=== PATIENT | female | born 1930 | race African-American/Black ===

== ENCOUNTER 2018-05-24 19:57 | Emergency (ER) | payer MEDICARE ==
[2018-05-24] MEDS: DIPHTH,PERTUSS(ACELL),TET TOX 0.5 ML DISP.SYRIN. VAX IM (20:46)
== END 2018-05-24 21:10 | disposition home or self-care (01) ==
LOC: ER 19:57
DX: S61.031A Puncture wound without foreign body of right thumb without damage to nail, initial encounter (principal); Z88.0 Allergy status to penicillin; Z88.8 Allergy status to other drugs, medicaments and biological substances; W26.8XXA Contact with other sharp object(s), not elsewhere classified, initial encounter; Y93.89 Activity, other specified; Y99.8 Other external cause status; Y92.89 Other specified places as the place of occurrence of the external cause
CPT/HCPCS: 90471; 90715; 99283-25